=== PATIENT | male | born 1980 | race Caucasian/White ===

== ENCOUNTER 2017-06-23 10:27 | Emergency (ER) | payer OTHER, MEDICAID ==
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
[2017-06-23] MEDS ORDERED: TDAP ADULT 0.5 ML INJ (BOOSTRIX) IM ONE (11:40)
[2017-06-23 11:52] VITALS: BP 125/85
== END 2017-06-23 11:50 | disposition home or self-care (01) ==
DX: S71.151A Open bite, right thigh, initial encounter (principal); W50.3XXA Accidental bite by another person, initial encounter; Z23 Encounter for immunization